=== PATIENT | male | born 1955 | race Caucasian/White ===

== ENCOUNTER 2018-10-18 10:20 | Emergency (ER) | payer MEDICARE, BC ==
[2018-10-18] MEDS ORDERED: levoFLOXacin 250 MG TABLET PO STA (11:04)
--- NOTE | 2018-10-18 11:07 | ED Physician Documentation ---
PD HPI DYSPNEA - Stated complaint Stated Complaint: COUGH/W BACK PX - Chief complaint Chief Complaint: Resp - History obtained from History obtained from: Patient - History of Present Illness Timing - onset: Other (He is been sick for about a month with a productive cough and left-sided upper back pain. He took a Z-Vimal from his primary care physician which did not help. He has not worsened much either. He has been fatigued on and off.) Review of Systems Constitutional: reports: Fever (gone) Cardiac: denies: Chest pain / pressure, Palpitations Respiratory: reports: Dyspnea, Cough PD PAST MEDICAL HISTORY - Past Medical History Past Medical History: No - Present Medications Home Medications: Ambulatory Orders Medication Instructions Recorded Confirmed Levofloxacin [Levaquin] 750 mg PO DAILY #10 tablet 10/18/18 - Allergies Allergies/Adverse Reactions: Allergies Allergy/AdvReac Type Severity Reaction Status Date / Time No Known Drug Allergies Allergy Verified 10/18/18 10:25 - Social History Does the pt smoke?: No Smoking Status: Never smoker PD ED PE NORMAL - Vitals Vital signs reviewed: Yes - General General: Alert and oriented X 3, No acute distress - HEENT HEENT: PERRL, EOMI - Neck Neck: Supple, no meningeal sign, No bony TTP - Cardiac Cardiac: RRR, No murmur - Respiratory Respiratory: Other (Diminished both bases, left worse than right.) - Abdomen Abdomen: Non tender - Extremities Extremities: No edema, No calf tenderness / cord - Neuro Neuro: Alert and oriented X 3, Normal speech Results - Vitals Vitals: Vital Signs - 24 hr 10/18/18 10:23 Temperature 36.9 C Heart Rate 88 Respiratory 18 Rate Blood Pressure 164/89 H O2 Saturation 99 - Labs Labs: Laboratory Tests 10/18/18 10/18/18 11:52 11:52 WBC 15.3 H RBC 4.39 L Hgb 14.1 Hct 40.4 L MCV 92.1 MCH 32.0 H MCHC 34.8 RDW 13.5 Plt Count 760 H MPV 6.8 L Neut # (Auto) 13.4 H Lymph # (Auto) 0.7 L Vigo # (Auto) 1.0 Eos # (Auto) 0.2 Baso # (Auto) 0.1 Absolute Nucleated RBC 0.01 Nucleated RBC % 0.1 Sodium 133 L Potassium 4.4 Chloride 94 L Carbon Dioxide 26 Anion Gap 13.0 BUN 19 Creatinine 1.2 Estimated GFR (MDRD) 61 L Glucose 103 H Calcium 9.3 Total Bilirubin 0.5 AST 61 H ALT 71 H Alkaline Phosphatase 131 H Total Protein 8.0 Albumin 3.6 Globulin 4.4 H Albumin/Globulin Ratio 0.8 L Lipase 41 - Rads (name of study) 2v chest Radiology: EMP read contemporaneously (LLL PNA with small effusion) Departure - Departure Disposition: 01 Home, Self Care Clinical Impression: Pneumonia Qualifiers: Pneumonia type: due to unspecified organism Laterality: left Lung location: lower lobe of lung Qualified Code(s): J18.1 - Lobar pneumonia, unspecified organism Condition: Good Record reviewed to determine appropriate education?: Yes Instructions: ED Pneumonia Adult Prescriptions: Levofloxacin [Levaquin] 750 mg PO DAILY #10 tablet Comments: As discussed you will need a follow-up chest x-ray with your primary care physician in a few weeks to assess for resolution of the pneumonia. Return for new or worsening symptoms. Your lab work you also have a high platelet count which is likely from the subacute remote pneumonia and a mildly elevated set of liver enzymes. Your physician will want to recheck these as well. Your blood pressure was elevated today on check into the emergency department. This does not mean that you have hypertension, it is a common phenomenon to come to the emergency department and have elevated blood pressure. I recommend that you see your primary care physician within the week to have it rechecked when you are feeling better.
--- NOTE | 2018-10-18 11:31 | XRAY Report ---
Reason: cough Procedure Date: 10/18/2018 Accession Number: [id number] / [id number] Procedure: XR - Chest 2 View X-Ray CPT Code: 04904 FULL RESULT: EXAM: CHEST RADIOGRAPHY EXAM DATE: 10/18/2018 11:02 AM. CLINICAL HISTORY: Cough. COMPARISON: None. TECHNIQUE: 2 views. FINDINGS: Lungs/Pleura: There is consolidation of the left lower lung and to a minimal degree of the right middle lobe. No sizable pneumothorax and a trace left pleural effusion. Mediastinum: Heart and mediastinal contours are unremarkable. Other: None. IMPRESSION: Left lower lung pneumonia. Possibly also right middle lobe pneumonia. RADIA
[2018-10-18 11:59] LABS: BASOPHILS # (AUTO) 0.1 10^3/uL (0.0-0.1); BASOPHILS % (AUTO) 0.6 %; EOSINOPHILS # (AUTO) 0.2 10^3/uL (0.0-0.7); EOSINOPHILS % (AUTO) 1.3 %; HGB - HEMOGLOBIN 14.1 g/dL (14.0-18.0); LYMPHOCYTES # (AUTO) 0.7 10^3/uL (1.5-3.5); LYMPHOCYTES % (AUTO) 4.5 %; MEAN CORPUSCULAR HGB CONC 34.8 g/dL (32.0-36.0); MEAN CORPUSCULAR VOLUME 92.1 fL (80.0-94.0); MEAN PLATELET VOLUME 6.8 fL (7.4-11.4); MONOCYTES % (AUTO) 6.3 %; NEUTROPHILS # (AUTO) 13.4 10^3/uL (1.5-6.6); NEUTROPHILS % (AUTO) 87.3 %; PLT - PLATELET COUNT 760 10^3/uL (130-450); RED BLOOD COUNT 4.39 10^6/uL (4.70-6.10); RED CELL DISTRIBUTION WIDTH 13.5 % (12.0-15.0); WHITE BLOOD COUNT 15.3 x10^3/uL (4.8-10.8)
[2018-10-18 12:12] LABS: ALBUMIN 3.6 g/dL (3.2-5.5); ALBUMIN/GLOBULIN RATIO 0.8 (1.0-2.2); BILIRUBIN,TOTAL 0.5 mg/dL (0.2-1.0); CALCIUM 9.3 mg/dL (8.5-10.3); CREATININE 1.2 mg/dL (0.6-1.2)
[2018-10-18 12:25] VITALS: BP 150/88
== END 2018-10-18 12:24 | disposition home or self-care (01) ==
LOC: ED 10:20
DX: J18.1 Lobar pneumonia, unspecified organism (principal)
CPT/HCPCS: 36415; 71046; 80053; 83690; 85025; 99283; A9270

== ENCOUNTER 2024-06-19 06:43 | Outpatient (CLI) | payer MEDICARE, BC ==
--- NOTE | 2024-06-19 10:36 | Ultrasound Report ---
PROCEDURE: Aorta Screening INDICATIONS: EX SMOKER TECHNIQUE: Real time scanning was performed of the aorta and iliac arteries, with image documentatio n. COMPARISON: None. FINDINGS: Aorta: Proximal aortic diameter measures 2.6 x 2.8 cm. Mid-aorta measures 2.0 x 2.3 cm. Distal aor tic diameter is 2.0 x 1.8 cm. Coarse calcification resulting in luminal irregularity. No periaortic fluid collection. Iliac arteries: Right common iliac artery measures 1.4 x 1.4 cm. Left common iliac artery measures 1.4 x 1.6 cm. IMPRESSION: Abdominal aorta with ectasia proximally. Follow-up surveillance in 5 years recommended. Recommended intervals for follow-up imaging of ectatic aortas and abdominal aortic aneurysms, per ACR consensus guidelines: 2.5-2.9 cm: 5 years 3.0-3.4 cm: 3 years 3.5-3.9 cm: 2 years 4.0-4.4 cm: 1 year 4.5-4.9 cm: 6 months + endovascular referral 5.0-5.5 cm: 3-6 months + endovascular referral Reviewed by: Patrica Milner MD on 06/19/2024 10:34 AM PDT Approved by: Patrica Milner MD on 06/19/2024 10:34 AM PDT Station ID: [id number]
== END 2024-06-19 06:44 | disposition home or self-care (01) ==
LOC: DI 06:43
DX: Z13.6 Encounter for screening for cardiovascular disorders (principal); I77.811 Abdominal aortic ectasia; Z87.891 Personal history of nicotine dependence